=== PATIENT | female | born 1960 | race Hispanic/Latino ===

== ENCOUNTER 2021-07-06 00:35 | Emergency (ER) | payer SELFPAY ==
[~2021-07-06] VITALS: Ht 152.4 cm; Wt 104.3 kg
[2021-07-06 01:01] VITALS: BP 138/78
[2021-07-06] MEDS ORDERED: METH4TAB3 PO (01:12)
== END 2021-07-06 01:19 | disposition home or self-care (01) ==
LOC: EDH 00:35
DX: G89.29 Other chronic pain (principal); M25.561 Pain in right knee; E66.01 Morbid (severe) obesity due to excess calories; Z68.41 Body mass index [BMI] 40.0-44.9, adult